=== PATIENT | female | born 1975 | race Two or more races ===

== ENCOUNTER 2021-01-31 14:09 | Outpatient (CLI) | payer OTHER | END 2021-01-31 14:17 | disposition home or self-care (01) | LOC: SONOGRAMA 14:09 → MAMO-SONO 14:15 → SONOGRAMA 14:17 | PROVIDERS: ATTEND Specialist | DX: N83.291 Other ovarian cyst, right side (principal); D25.1 Intramural leiomyoma of uterus; D25.2 Subserosal leiomyoma of uterus ==